=== PATIENT | female | born 1980 | race Caucasian/White ===

== ENCOUNTER 2016-11-19 22:45 | Emergency (ER) | payer OTHER ==
--- NOTE | 2016-11-19 23:37 | NUR ---
Patient was called several times to be traige. Patient was not present. Patient was not traige or seen by ERMD
== END 2016-11-19 23:39 | disposition left against medical advice (07) ==
LOC: ER 22:46
DX: Z53.21 Procedure and treatment not carried out due to patient leaving prior to being seen by health care provider (principal)